=== PATIENT | male | born 1975 | race Caucasian/White ===

== ENCOUNTER 2016-06-23 02:08 | Emergency (ER) | payer BC ==
[~2016-06-23] VITALS: Ht 185.4 cm; Wt 98.3 kg
[2016-06-23 02:17] VITALS: BP 125/86; PULSE 76; RESP 18; TEMP 98.6; O2SAT 99
[2016-06-23] MEDS ORDERED: LEVA500T PO (02:24)
[2016-06-23] MEDS ORDERED: MUCI30TA2 PO (02:24)
[2016-06-23] MEDS ORDERED: PRED10 PO (02:24)
[2016-06-23] MEDS ORDERED: CHLORPHENIR/HYDROCOD LIQUID 8 MG/10 MG/5 ML CUP PO ONE (03:00)
[2016-06-23] MEDS ORDERED: TUSSSUS2 PO (03:03)
--- NOTE | 2016-06-23 03:26 | PD ---
HPI Chief Complaint: Cold / Flu Symptoms Time Seen by Provider: 02:47 Travel History International Travel<30 days: No Contact w/Intl Traveler<30days: No Traveled to known affect area: No History of Present Illness HPI The patient is a 40-year-old male that has a cough productive of pink sputum for 10 days. He noted crackling in his lungs earlier yesterday. He came out tonight because of the persistent cough and the sensation of crackling in the anterior midportion of his lungs. He had a chest x-ray yesterday at [facility] which was normal. He denies any fever. He teaches at [employer]. He is not in any flight status. He is not short of breath. He is already been put on by Dr. Carlson, his primary care physician, Levaquin, prednisone and Mucinex DM. [facility] Past Medical History Medical History: Denies Significant Hx Past Surgical History Tonsillectomy: Yes Social History Alcohol Use: Yes (occasional) Tobacco Use: Yes (quit 20 years ago) Substance Use: No Allergies-Medications (Allergen,Severity, Reaction): Coded Allergies: No Known Allergies (Unverified , 06/23/16) Reported Meds & Prescriptions Reported Meds & Active Scripts Active Tussionex Pennkinetic Ext 12 HR Liq (Hydrocodone-Chlorpheniramine 12 HR Liq) 10- 8 Mg/5 Ml Susp 10 Ml PO Q12H PRN Reported Mucinex DM (Dextromethorphan-Guaifenesin) 30-600 Mg Tab 2 Tab PO BID PRN Prednisone 10 Mg Tab 10 Mg PO DAILY Levaquin (Levofloxacin) 500 Mg Tab 500 Mg PO DAILY Review of Systems Except as stated in HPI: all other systems reviewed are Neg Physical Exam Narrative GENERAL: The patient is alert, oriented 3 in no respiratory distress. His vital signs are normal. SKIN: Focused skin assessment warm/dry. HEAD: Atraumatic. Normocephalic. EYES: Pupils equal and round. No scleral icterus. No injection or drainage. ENT: No nasal bleeding or discharge. Mucous membranes pink and moist. NECK: Trachea midline. No JVD. CARDIOVASCULAR: Regular rate and rhythm. No murmur appreciated. RESPIRATORY: No accessory muscle use. Clear to auscultation. Breath sounds equal bilaterally. GASTROINTESTINAL: Abdomen soft, non-tender, nondistended. Hepatic and splenic margins not palpable. No guarding or rebound is present. MUSCULOSKELETAL: No obvious deformities. No clubbing. No cyanosis. No edema. NEUROLOGICAL: Awake and alert. No obvious cranial nerve deficits. Motor grossly within normal limits. Normal speech. PSYCHIATRIC: Appropriate mood and affect; insight and judgment normal. Data Data Last Documented VS Vital Signs Date Time Temp Pulse Resp B/P Pulse Ox O2 Delivery O2 Flow Rate FiO2 06/23/16 02:17 98.6 76 18 125/86 99 Orders Chlorphenir-Hydrocodone Liq (Tussionex L (06/23/16 03:00) Influenzae A/B Antigen (06/23/16 03:04) MDM Medical Decision Making Medical Screen Exam Complete: Yes Emergency Medical Condition: Yes Medical Record Reviewed: Yes Differential Diagnosis Viral syndrome, flu syndrome, pneumonia, bronchitis Narrative Course The patient is already been treated for pneumonia, bacterial bronchitis, atypical pneumonia. I can give him a stronger cough syrup, he is not to drink alcohol or drive with this cough syrup. He should increase liquids and rest. He needs to follow-up with Dr. Carlson. At this time he may simply have a viral syndrome. Diagnosis Primary Impression: Viral upper respiratory infection Additional Instructions: Rest, increase liquids and the mainstay of treating a virus. Continue to take your antibiotics/medications as prescribed. Follow-up with Dr. Carlson. Med/Other Pt SpecificInfo: Prescription(s) given Scripts Hydrocodone-Chlorpheniramine 12 HR Liq (Tussionex Pennkinetic Ext 12 HR Liq)10- 8 Mg/5 Ml Susp10 Ml PO Q12H PRN (COUGH AND/OR COLD SYMPTOMS) #180 ML Ref 0 Prov:Henry Rothman MD 06/23/16 Disposition: 01 DISCHARGE HOME Condition: Stable Henry Rothman MD Jun 23, 2016 03:25
[2016-06-23 03:33] VITALS: BP 117/77
== END 2016-06-23 03:34 | disposition home or self-care (01) ==
LOC: PHED 02:08
DX: J06.9 Acute upper respiratory infection, unspecified (principal)
CPT/HCPCS: 87804; 99283